=== PATIENT | female | born 1975 | race Caucasian/White ===

== ENCOUNTER 2018-12-30 16:53 | Emergency (ER) | payer BC, OTHER ==
--- NOTE | 2018-12-30 18:09 | EDM.PDOC ---
ED HPI GENERAL MEDICAL PROBLEM - General Chief Complaint: Cardiovascular Problem Stated Complaint: HIGH BP Time Seen by Provider: 12/30/18 17:35 Source of Information: Reports: Patient History Limitations: Reports: No Limitations - History of Present Illness INITIAL COMMENTS - FREE TEXT/NARRATIVE: 43-year-old female who reports that when she awoke this morning at 6 AM she did not feel well. It was more of just a feeling of malaise and a mild headache. At approximately 10 AM she developed lightheadedness and what she felt was maybe syncope and she was feeling flushed all over with palpitations and the feeling that her heart was pounding. She had no chest pain associated with this. She had no feelings of shortness of breath. There is no nausea or vomiting associated with this. She did have a somewhat worsening diffuse headache that she reported was about a 6/10 at that point. She has recently been seen for elevated blood pressure was placed on hydrochlorothiazide 12.5 mg orally by her primary provider.she has been taking this for about a week. She did notice today that her blood pressure was elevated, consistently and she related this to the symptoms she was having. She presents here now just feeling somewhat fatigued and her headache has resolved. She has no more palpitations. She has no chest pain. There is no fever or cough at this time. Antecedent problems and she reported that she felt well yesterday. She is currently rating her pain as a 0/10. There are no other associated signs or symptoms. There are no other modifying factors. 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) - Related Data Allergies Allergy/AdvReac Type Severity Reaction Status Date / Time No Known Allergies Allergy Verified 12/30/18 17:51 Home Meds: Home Meds FLUoxetine [PROzac] 10 mg PO DAILY 12/30/18 [History] Hydrochlorothiazide [Microzide] 12.5 mg PO DAILY 12/30/18 [History] Past Medical History Cardiovascular History: Reports: Hypertension - Past Surgical History HEENT Surgical History: Reports: Eye Surgery (right eye strabismus surgery) Female Surgical History: Reports: Dilitation & Evacuation Social & Family History - Tobacco Use Smoking Status *Q: Never Smoker - Alcohol Use Alcohol Use History: Yes Alcohol Use Frequency: Rarely - Living Situation & Occupation Living situation: Reports: (she is here with her .) Occupation: Employed (she works here at [employer]) ED ROS GENERAL - Review of Systems Review Of Systems: See Below Constitutional: Reports: Malaise, Fatigue HEENT: Reports: No Symptoms Respiratory: Reports: No Symptoms Cardiovascular: Reports: Lightheadedness, Palpitations Endocrine: Reports: Fatigue GI/Abdominal: Reports: No Symptoms : Reports: No Symptoms, Other (on her menses now.) Musculoskeletal: Reports: No Symptoms Skin: Reports: No Symptoms Neurological: Reports: Headache, Other (near syncopal at one time, that has resolved.) Hematologic/Lymphatic: Reports: No Symptoms Immunologic: Reports: No Symptoms ED EXAM, GENERAL - Physical Exam Exam: See Below Exam Limited By: No Limitations General Appearance: Alert, WD/WN, No Apparent Distress (other than somewhat anxious) Eye Exam: Bilateral Eye: EOMI, Normal Inspection, PERRL Ears: Normal External Exam, Hearing Grossly Normal Nose: Normal Inspection, Normal Mucosa Throat/Mouth: Normal Inspection, Normal Lips, Normal Oropharynx, Normal Voice, No Airway Compromise Head: Atraumatic, Normocephalic Neck: Normal Inspection, Supple, Non-Tender, Full Range of Motion Respiratory/Chest: No Respiratory Distress, Lungs Clear, Normal Breath Sounds, No Accessory Muscle Use, Chest Non-Tender Cardiovascular: Normal Peripheral Pulses, Regular Rate, Rhythm, No JVD Peripheral Pulses: 2+: Radial (L), Radial (R), Dorsalis Pedis (L), Dorsalis Pedis (R) GI/Abdominal: Normal Bowel Sounds, Soft, Non-Tender, No Organomegaly, No Distention, No Mass Back Exam: Normal Inspection Extremities: Normal Inspection, Normal Range of Motion, Non-Tender, No Pedal Edema, Normal Capillary Refill Neurological: Alert, Oriented, CN II-XII Intact, Normal Cognition, No Motor/ Sensory Deficits, Other (no pronator drift. No dysmetria.) Psychiatric: Anxious Skin Exam: Warm, Dry, Intact, Normal Color, No Rash Lymphatic: No Adenopathy EKG INTERPRETATION EKG Date: 12/30/18 Time: 18:05 Rhythm: NSR Rate (Beats/Min): 79 [place]: Normal P-Wave: Present QRS: Normal ST-T: Normal QT: Normal Comparison: NA - No Prior EKG EKG Interpretation Comments: normal sinus rhythm with a rate of 79. There is a normal axis. There are normal intervals including a normal QTC. This is a normal EKG. Course - Vital Signs Last Recorded V/S: Last Vital Signs Temp 37.1 C 12/30/18 19:10 Pulse 81 12/30/18 19:10 Resp 16 12/30/18 19:10 BP 147/91 H 12/30/18 19:10 Pulse Ox 100 12/30/18 19:10 - Orders/Labs/Meds Orders: Active Orders 24 hr Category Date Time Status THYROXINE (T4) FREE, DIRECT, S Urgent Lab 12/30/18 18:00 Received EKG 12 Lead [EK] Routine Ther 12/30/18 17:51 Ordered Labs: Laboratory Tests 12/30/18 12/30/18 12/30/18 Range/Units 18:00 18:00 18:00 WBC 6.2 (4.5-12.0) X10-3/uL RBC 4.92 (3.23-5.20) x10(6)uL Hgb 15.2 (11.5-15.5) g/dL Hct 44.4 (30.0-51.3) % MCV 90.3 (80-96) fL MCH 31.0 (27.7-33.6) pg MCHC 34.3 (32.2-35.4) g/dL RDW 12.2 (11.5-15.5) % Plt Count 189 (125-369) X10(3)uL MPV 8.9 (7.4-10.4) fL Neut % (Auto) 68.0 (46-82) % Lymph % (Auto) 24.8 (13-37) % [place] % (Auto) 4.5 (4-12) % Eos % (Auto) 2 (1.0-5.0) % Baso % (Auto) 1 (0-2) % Neut # (Auto) 4.3 (1.6-8.3) # Lymph # (Auto) 1.5 (0.6-5.0) # [place] # (Auto) 0.3 (0.0-1.3) # Eos # (Auto) 0.1 (0.0-0.8) # Baso # (Auto) 0.0 (0.0-0.2) # Sodium 138 (135-145) mmol/L Potassium 3.7 (3.5-5.3) mmol/L Chloride 102 (100-110) mmol/L Carbon Dioxide 29 (21-32) mmol/L BUN 20 H (7-18) mg/dL Creatinine 1.1 H (0.55-1.02) mg/dL Est Cr Clr Drug Dosing 51.08 mL/min Estimated GFR (MDRD) 54 L (>60) BUN/Creatinine Ratio 18.2 (9-20) Glucose 125 H (80-116) mg/dL Calcium 9.4 (8.6-10.2) mg/dL Magnesium 1.9 (1.8-2.5) mg/dL Total Bilirubin 0.3 (0.1-1.3) mg/dL AST 41 H (5-25) IU/L ALT 44 H (12-36) U/L Alkaline Phosphatase 80 (56-112) IU/L Troponin I < 0.017 L (<0.017-0.056) ng/mL Total Protein 7.5 (6.0-8.0) g/dL Albumin 3.8 (3.5-5.2) g/dL Globulin 3.7 g/dL Albumin/Globulin Ratio 1.0 TSH, Ultra Sensitive 6.35 H (0.36-3.74) IU/mL Urine Color (YELLOW) Urine Appearance (CLEAR) Urine pH (5.0-6.5) Ur Specific [place] (1.010-1.025) Urine Protein (NEGATIVE) mg/dL Urine Glucose (UA) (NORMAL) mg/dL Urine Ketones (NEGATIVE) mg/dL Urine Occult Blood (NEGATIVE) Urine Nitrite (NEGATIVE) Urine Bilirubin (NEGATIVE) Urine Urobilinogen (NEGATIVE) mg/dL Ur Leukocyte Esterase (NEGATIVE) Urine RBC (0-5) Urine WBC (0-5) Ur Squamous Epith Cells (NS,R,O) Urine Bacteria (NS) 12/30/18 Range/Units 18:01 WBC (4.5-12.0) X10-3/uL RBC (3.23-5.20) x10(6)uL Hgb (11.5-15.5) g/dL Hct (30.0-51.3) % MCV (80-96) fL MCH (27.7-33.6) pg MCHC (32.2-35.4) g/dL RDW (11.5-15.5) % Plt Count (125-369) X10(3)uL MPV (7.4-10.4) fL Neut % (Auto) (46-82) % Lymph % (Auto) (13-37) % [place] % (Auto) (4-12) % Eos % (Auto) (1.0-5.0) % Baso % (Auto) (0-2) % Neut # (Auto) (1.6-8.3) # Lymph # (Auto) (0.6-5.0) # [place] # (Auto) (0.0-1.3) # Eos # (Auto) (0.0-0.8) # Baso # (Auto) (0.0-0.2) # Sodium (135-145) mmol/L Potassium (3.5-5.3) mmol/L Chloride (100-110) mmol/L Carbon Dioxide (21-32) mmol/L BUN (7-18) mg/dL Creatinine (0.55-1.02) mg/dL Est Cr Clr Drug Dosing mL/min Estimated GFR (MDRD) (>60) BUN/Creatinine Ratio (9-20) Glucose (80-116) mg/dL Calcium (8.6-10.2) mg/dL Magnesium (1.8-2.5) mg/dL Total Bilirubin (0.1-1.3) mg/dL AST (5-25) IU/L ALT (12-36) U/L Alkaline Phosphatase (56-112) IU/L Troponin I (<0.017-0.056) ng/mL Total Protein (6.0-8.0) g/dL Albumin (3.5-5.2) g/dL Globulin g/dL Albumin/Globulin Ratio TSH, Ultra Sensitive (0.36-3.74) IU/mL Urine Color Red (YELLOW) Urine Appearance Cloudy (CLEAR) Urine pH 6.0 (5.0-6.5) Ur Specific [place] 1.020 (1.010-1.025) Urine Protein Trace (NEGATIVE) mg/dL Urine Glucose (UA) Normal (NORMAL) mg/dL Urine Ketones Negative (NEGATIVE) mg/dL Urine Occult Blood Large H (NEGATIVE) Urine Nitrite Negative (NEGATIVE) Urine Bilirubin Negative (NEGATIVE) Urine Urobilinogen Normal (NEGATIVE) mg/dL Ur Leukocyte Esterase Large H (NEGATIVE) Urine RBC >100 H (0-5) Urine WBC 10-20 H (0-5) Ur Squamous Epith Cells Few H (NS,R,O) Urine Bacteria Few H (NS) Departure - Departure Time of Disposition: 20:08 Disposition: Home, Self-Care 01 Condition: Good Clinical Impression: Hypertension, uncontrolled, Elevated TSH, Palpitations Instructions: Hypothyroidism, How to Take Your Blood Pressure, Hypertension, [id number], Palpitations, [id number], Preventing Hypertension, Managing Your Hypertension Referrals: Bibi Vidales NP [Primary Care Provider] - Forms: ED Department Discharge Additional Instructions: Your blood tests were reassuringly normal today except for an elevation of your thyroid stimulating hormone. We sent another test to check your thyroid out more fully. Your EKG was normal. Your blood pressure was much improved here in the emergency department. I recommend that you increase your hydrochlorothiazide to 2 pills (25 mg) every morning. You should drink plenty of fluids. Call your primary provider in the morning and arrange to see her by next week. Check your blood pressure daily and keep a record of it to present to your primary provider. Back to the emergency department for trouble breathing, chest pain, worsening headache or any other concerning sign or symptom. - My Orders Last 24 Hours: My Active Orders 12/30/18 17:51 EKG 12 Lead [EK] Routine 12/30/18 18:00 THYROXINE (T4) FREE, DIRECT, S Urgent - Assessment/Plan Last 24 Hours: My Active Orders 12/30/18 17:51 EKG 12 Lead [EK] Routine 12/30/18 18:00 THYROXINE (T4) FREE, DIRECT, S Urgent
== END 2018-12-30 20:20 | disposition home or self-care (01) ==
LOC: FB.ED 16:53
DX: I10 Essential (primary) hypertension (principal); R00.2 Palpitations; R94.6 Abnormal results of thyroid function studies; Z79.899 Other long term (current) drug therapy
CPT/HCPCS: 36415; 80053; 81001; 83735; 84439; 84443; 84484; 85025; 93005; 99283-25